=== PATIENT | female | born 1990 | race Caucasian/White ===

== ENCOUNTER 2016-11-07 16:57 | Emergency (ER) | payer MEDICAID ==
[~2016-11-07] VITALS: Ht 157.5 cm; Wt 114.3 kg
[~2016-11-07 16:57] MED LIST: CETI10CA9 PO; FLUT1DIS5 INH
--- NOTE | 2016-11-07 17:15 | NUR ---
Called pt x1, no answer, pt not on waiting room
[2016-11-07 17:42] VITALS: BP 139/89; PULSE 130; RESP 20; TEMP 98.2; O2SAT 92
--- NOTE | 2016-11-07 17:56 | NUR ---
Placed in room 08 . Placed on campus coordinator, blood pressure machine and pulse oximeter. To gown for exam. Side rails up.
[2016-11-07] MEDS ORDERED: NACL 0.9% 1,000 ML IV ONE ×2 (18:15→21:00)
[2016-11-07 18:44] LABS: BILIRUBIN,URINE 1+ (NEGATIVE); BLOOD, URINE 2+ (NEGATIVE); CLARITY/URINE CLEAR (CLEAR); COLOR,URINE YELLOW (YELLOW); GLUCOSE,URINE NEGATIVE (NEGATIVE); KETONES,URINE NEGATIVE (NEGATIVE); LEUKOCYTE ESTERASE ,URINE NEGATIVE (NEGATIVE); NITRITE, URINE NEGATIVE (NEGATIVE); PROTEIN URINE TRACE (NEGATIVE); UROBILINOGEN,URINE 0.2 (0.2-1.0)
[2016-11-07 18:46] LABS: BASOPHILS % (AUTO) 0.5 % (0.0-2.0); EOSINOPHILS # (AUTO) 0.1 K/uL (0.0-0.4); EOSINOPHILS % (AUTO) 1.7 % (0.0-4.0); HEMATOCRIT 44.3 % (36-48); HEMOGLOBIN 14.7 g/dL (12.0-16.0); LYMPHOCYTES # (AUTO) 1.4 K/uL (1.0-5.5); LYMPHOCYTES % (AUTO) 17.5 % (20.5-51.5); MEAN CORPUSCULAR HEMOGLOBIN 27 pg (27-31); MEAN CORPUSCULAR HGB CONC 33 % (32-36); MEAN CORPUSCULAR VOLUME 82 fL (79.0-98.0); MONOCYTES # (AUTO) 0.4 K/uL (0.0-1.0); NEUTROPHILS # (AUTO) 6.2 K/uL (1.8-7.7); NEUTROPHILS % (AUTO) 75.3 % (40.0-70.0); PLATELET COUNT (AUTO) 327 K/uL (130-430); RED BLOOD CELL COUNT(AUTO) 5.41 MIL/uL (4.2-6.2); RED CELL DISTRIBUTION WIDTH 12.9 % (9.0-15.0); WHITE BLOOD COUNT (AUTO) 8.1 K/uL (4.8-10.8)
[2016-11-07 18:53] LABS: BACTERIA,URINE FEW /HPF (None Seen); CALCIUM OXALATE CRYSTALS,UR 0-10 /HPF (None Seen); MUCUS,URINE 1+ /LPF (None Seen)
[2016-11-07 19:07] LABS: CREATININE 0.78 mg/dL (0.55-1.30); POTASSIUM 3.3 mmol/L (3.5-5.1)
--- NOTE | 2016-11-07 19:20 | NUR ---
Received report from [facility].
[2016-11-07 19:21] LABS: ALBUMIN 3.4 g/dL (3.4-4.8); TOTAL BILIRUBIN 0.5 mg/dL (0.0-1.0); TOTAL PROTEIN, SERUM 8.2 g/dL (6.4-8.3)
--- NOTE | 2016-11-07 19:21 | NUR ---
Patient AAO x4, sitting in bed, c/o abd pain 5/10 x 3 days with Nausea and diarrhea, no acute distress noted. Will continue to monitor.
[2016-11-07] MEDS ORDERED: DIPHENHYDRAMINE INJ 50 MG/ML VIAL IVP ONE (19:30)
[2016-11-07] MEDS ORDERED: MORPHINE 4 MG/ML INJ. SYRINGE IVP ONE (19:30)
--- NOTE | 2016-11-07 19:38 | NUR ---
NS IV BOLUS GIVEN BOLUS PER [employer] MAINFRAME DEVELOPER MARKY MOORE ORDER .
[2016-11-07] MEDS ORDERED: POTASSIUM CHLORIDE 10 MEQ TAB.PRT.SR PO ONE (19:45)
[2016-11-07 20:58] VITALS: BP 130/85; PULSE 89; RESP 20; TEMP 98.2; O2SAT 92
--- NOTE | 2016-11-07 20:58 | NUR ---
Patient given written and verbal discharge instructions and verbalizes understanding. ER MD discussed with patient the results and treatment provided. Patient in stable condition. ID arm band removed. IV catheter removed intact and dressing applied, no active bleeding. Rx of cipro and zofran given. Patient educated on pain management and to follow up with PMD. Pain Scale 0/10 .Opportunity for questions provided and answered.
== END 2016-11-07 20:58 | disposition home or self-care (01) ==
LOC: SED 16:57
DX: R19.7 Diarrhea, unspecified (principal); J45.909 Unspecified asthma, uncomplicated; Z87.442 Personal history of urinary calculi; Z88.5 Allergy status to narcotic agent; Z88.1 Allergy status to other antibiotic agents; Z91.02 Food additives allergy status
CPT/HCPCS: 36415; 74176; 80053; 81000; 81025; 83690; 85025; 87040; 96361; 96374; 96375; 99285; J1200; J2270; J7030